=== PATIENT | male | born 1955 | race Caucasian/White ===

== ENCOUNTER 2021-07-17 06:01 | Emergency (ER) | payer BC ==
[~2021-07-17] VITALS: Ht 180.3 cm; Wt 90.0 kg
--- NOTE | 2021-07-17 06:53 | NUR ---
REPORT FROM CHIDI, ASSUME CARE OF PT AT THIS TIME.
--- NOTE | 2021-07-17 07:20 | NUR ---
PT TO XR
--- NOTE | 2021-07-17 07:56 | NUR ---
XR RESULT BACK, PT FOR RECHECK.
[2021-07-17 08:36] VITALS: BP 148/72
== END 2021-07-17 08:41 | disposition home or self-care (01) ==
LOC: ED 07:41
DX: R09.81 Nasal congestion (principal); R06.02 Shortness of breath; R94.31 Abnormal electrocardiogram [ECG] [EKG]
CPT/HCPCS: 71046; 93005; 99283